=== PATIENT | female | born 2005 | race Caucasian/White ===

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

== ENCOUNTER → 2024-04-04 | Outpatient (CLI) | payer BC | LOC: M WUC 11:25 | PROVIDERS: ATTEND Nurse Practitioner Family | DX: R05.9 Cough, unspecified (principal) ==

== ENCOUNTER → 2025-03-17 | Outpatient (CLI) | payer BC ==
[2025-03-17 18:20] LABS: PLATELET COUNT, AUTOMATED 282 10^3/uL (150-450)
== END ==
LOC: M PLALAB 17:02
DX: K92.1 Melena (principal)

== ENCOUNTER → 2025-04-18 | Outpatient (REF) | payer BC ==
[2025-04-18 18:47] LABS: ESTIMATED AVERAGE GLUCOSE 88.0 MG/DL (60-110)
[2025-04-20 06:32] LABS: DEHYDROEPIANDROSTERONE SULFATE 443 mcg/dL (44-286)
== END ==
LOC: M PLALAB 17:27
PROVIDERS: ATTEND Student in an Organized Health Care Education/Training Program
DX: N83.291 Other ovarian cyst, right side (principal)

== ENCOUNTER → 2025-05-26 | Outpatient (REF) | payer BC | LOC: M PLALAB 10:08 | PROVIDERS: ATTEND Student in an Organized Health Care Education/Training Program | DX: E28.8 Other ovarian dysfunction (principal) ==